=== PATIENT | female | born 1995 | race Caucasian/White ===

== ENCOUNTER 2020-03-10 07:31 | Emergency (ER) | payer OTHER ==
[~2020-03-10] VITALS: Ht 157.5 cm; Wt 53.1 kg
[2020-03-10] MEDS ORDERED: BENADRYL ITCH28.3 G1 (07:45)
== END 2020-03-10 09:21 | disposition home or self-care (01) ==
LOC: ER 07:31
DX: L56.8 Other specified acute skin changes due to ultraviolet radiation (principal); X32.XXXA Exposure to sunlight, initial encounter; Y93.89 Activity, other specified; Y92.832 Beach as the place of occurrence of the external cause; Y99.8 Other external cause status